=== PATIENT | female | born 1955 | race Caucasian/White ===

== ENCOUNTER → 2019-09-18 13:42 | Outpatient (CLI) | payer OTHER, SELFPAY ==
[2019-09-18 15:18] LABS: Free T3, Triiodothyronine Free 2.68 pg/mL (2.77-5.27); Free T4, Direct Thyroxine 1.02 ng/dL (0.78-2.19)
[2019-09-18 15:32] LABS: Thyroid Stimulating Hormone 1.15 uIU/mL (0.47-4.68)
[2019-09-18 16:41] LABS: Cholesterol 190 mg/dL (140-199); HDL Cholesterol 88 mg/dL (40-60); LDL Cholesterol Calculated 92 mg/dL (<100); Triglycerides 48 mg/dL (35-150)
[2019-09-18 16:42] LABS: Creatinine Urine Random 35.2 mg/dL
[2019-09-18 16:59] LABS: Microalbumin Urine Random < 0.6 mg/dL (0-1.6)
== END ==
PROVIDERS: Referring Provider Nurse Practitioner; Visit Provider Nurse Practitioner
DX: M85.88 Other specified disorders of bone density and structure, other site (principal); Z78.0 Asymptomatic menopausal state; E78.5 Hyperlipidemia, unspecified; Z91.018 Allergy to other foods; Z82.62 Family history of osteoporosis; Z87.891 Personal history of nicotine dependence
CPT/HCPCS: 36415; 77080; 80061; 82043; 82570; 84439; 84443; 84481

== ENCOUNTER → 2019-09-30 10:23 | Outpatient (CLI) | payer OTHER, SELFPAY ==
--- NOTE | 2019-09-30 10:29 | DI.MG.S_ITS ---
BILATERAL DIGITAL SCREENING MAMMOGRAM 3D/2D WITH CAD: 09/30/2019 CLINICAL: Baseline exam. Routine screening. Family history of breast cancer. No prior exams were available for comparison. The tissue of both breasts is heterogeneously dense. This may lower the sensitivity of mammography. Current study was also evaluated with a Computer Aided Detection (CAD) system. No significant masses, calcifications, or other findings are seen in either breast. IMPRESSION: NEGATIVE There is no mammographic evidence of malignancy. A 1 year screening mammogram is recommended. This exam was interpreted at Station ID: [id number]. NOTE: For mammograms, a report in lay terms will be sent to the patient. Approximately 15% of breast malignancies will not be visualized mammographically. In the management of a palpable breast mass, a negative mammogram must not discourage biopsy of a clinically suspicious lesion. Electronically Signed By: Beau chaidez/[email or web address]:10/02/2019 07:52:55 letter sent: Normal Exam ACR BI-RADS Category 1: Negative [id number]
== END ==
PROVIDERS: PCP Nurse Practitioner; Referring Provider Internal Medicine; Visit Provider Internal Medicine
DX: Z12.31 Encounter for screening mammogram for malignant neoplasm of breast (principal); Z80.3 Family history of malignant neoplasm of breast
CPT/HCPCS: 77063; 77067

== ENCOUNTER → 2020-01-01 14:03 | Outpatient (CLI) | payer OTHER, SELFPAY ==
--- NOTE | 2020-01-22 07:59 | PM.CARDMON.1 ---
Community Development Specialist Report Referral & Results Date Patient Seen: 01/01/20 Requesting provider: Teri Ashley Indication: Bradycardia Duration of monitoring (days): 7 Diary information: There were 8 patient triggered events and 8 patient diary entries Patient triggered events were associated with (within 45 seconds) sinus rhythm, PVCs, PACs, nonsustained ventricular tachycardia, and supraventricular tachycardia Patient diary entries were associated with (within 45 seconds) sinus rhythm, PVCs, PACs, and SVT. Data: Minimum heart rate identified was 57 beats per minute at 14:03 on 01/02/2020 Maximum sinus heart rate was 150 beats per minute at 14:30 on 01/07/2020 Maximum overall heart rate was 210 beats per minute at 17:40 on 01/03/2020 during a 4 beat run of nonsustained monomorphic ventricular tachycardia Less than 1% of identified beats or either ventricular supraventricular ectopic in origin There were 15 runs of nonsustained ventricular tachycardia the fastest being listed above and the longest lasting 10.1 seconds at a rate of 139 beats per minute. Upon closer inspection several of the episodes identified by the computer as ventricular tachycardia appear to be aberrantly conducted sinus beats. However others are much more likely true nonsustained monomorphic ventricular tachycardia. There were also 12 runs of SVT/atrial tachycardia the longest lasting 19 beats at a rate of 137 beats per minute, the fastest being 13 beats at a rate of 187 beats per minute Impression: beam doffer showing rare PVCs and PACs. There were some runs of ventricular tachycardia SVT and aberrantly conducted sinus that appeared and was interpreted as ventricular tachycardia by the computer Clinical correlation suggested
== END ==
PROVIDERS: PCP Nurse Practitioner; Referring Provider Nurse Practitioner; Visit Provider Nurse Practitioner
DX: R00.1 Bradycardia, unspecified (principal); R53.83 Other fatigue
CPT/HCPCS: 0296T; 0298T

== ENCOUNTER 2020-03-30 17:35 | Emergency (ER) | payer OTHER, SELFPAY ==
[2020-03-30 17:38] VITALS: BP 128/65; PULSE 74; RESP 15; TEMP 37; O2SAT 97; BMI 22.4
[2020-03-30 17:44] VITALS: PULSE 79; RESP 31; O2SAT 93
[2020-03-30 17:45] VITALS: BP 139/64; PULSE 75; RESP 25; O2SAT 100
[2020-03-30 18:00] VITALS: BP 116/58; PULSE 69; RESP 12; O2SAT 97
--- NOTE | 2020-03-30 18:00 | ED.ARRPALP ---
HPI - Arrhythmia/Palpitations General Chief Complaint: Arrhythmia/Palpitations Stated Complaint: states bradychardia Time Seen by Provider: 03/30/20 17:59 Source: patient Mode of arrival: Ambulatory Limitations: no limitations History of Present Illness HPI narrative: 64-year-old female former smoker with a history of WPW presents with a chief complaint of an episode of bradycardia which lasted about 3-4 minutes earlier today. She states that her heart rate was down in the 40s as measured by a pulse oximeter but she denies any symptoms such as dizziness, weakness or lightheadedness. She has no chest pain or shortness of breath. She states that she has had a few occurrences previously but no findings on EKGs, she's even had a Zio patch. She denies any symptoms. She denies any new medications, dietary change or supplements. She states she is only here because she was hoping we could catch it on an EKG. Onset (ago): hour(s) Duration: now resolved Severity: mild Context: occurred during rest Arrhythmia history: other Associated symptoms: denies other symptoms Related Data Home Medications Medication Instructions Recorded Confirmed No Known Home Medications 10/31/19 02/07/20 Allergies Allergy/AdvReac Type Severity Reaction Status Date / Time bee venom protein (honey bee) Allergy Severe anaphalaxic Verified 03/30/20 17:44 Penicillins Allergy Severe swelling Verified 03/30/20 17:44 Sulfa (Sulfonamide Allergy Mild rash Verified 03/30/20 17:44 Antibiotics) Review of Systems Constitutional Constitutional: Denies chills, Denies fatigue, Denies fever(s), Denies frequent falls, Denies lethargy and Denies weakness Eyes Eyes: Denies change in vision, Denies eye discharge, Denies irritation and Denies loss of vision ENT Ears, Nose, Mouth, and Throat: Denies change in voice, Denies dizziness, Denies neck pain, Denies sore throat and Denies throat swelling Cardiovascular Cardiovascular: Denies chest pain, Denies irregular heart rhythm, Denies lightheadedness, Denies palpitations, Denies dyspnea, Denies dyspnea on exertion and Denies orthopnea Respiratory Respiratory: Denies cough, Denies dyspnea, Denies dyspnea on exertion and Denies wheezing Gastrointestinal Gastrointestinal: Denies abdominal pain, Denies change in bowel habits, Denies diarrhea, Denies nausea and Denies vomiting Musculoskeletal Musculoskeletal: Denies neck pain and Denies numbness Integumentary/Breasts Skin/Breast: Denies pruritus, Denies erythema, Denies rash and Denies wounds Neurologic Neurologic: Denies behavioral changes, Denies confusion, Denies dizziness, Denies frequent falls, Denies loss of vision, Denies numbness and Denies weakness Psychiatric Psychiatric: Denies anxiety, Denies behavioral changes, Denies confusion, Denies depression, Denies homicidal ideation and Denies suicidal ideation Endocrine Endocrine: Denies fatigue, Denies flushing and Denies palpitations Hematologic/Lymphatic Hematologic/Lymphatic: Denies easy bruising Allergic/Immunologic Allergic/Immunologic: Denies urticaria, Denies throat swelling and Denies wheezing Patient History Medical History Allergy to alpha-gal 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 Grandfather Dementia Grandmother Diabetes mellitus History of heart disease Social History Smoking Status: Former smoker Smoking Status: Former smoker alcohol intake frequency: holidays/special occasions only Substance Use Type: does not use Exam Narrative Exam Narrative: GEN: AOx3 and in mild distress EYES: Pupils are equal, round, and reactive to light and accommodation. Extraoccular muscles are intact bilaterally. There is no subconjunctival hemorrhage or exudate. CHEST: Lungs are clear to auscultation bilaterally and free of wheezes, rales, or rhonchi. Heart rate is regular rhythm, there are no murmurs, clicks, rubs, or gallops. There is no chest wall tenderness. ABD: Abdomen is soft and nontender. There is no guarding or rebound. Bowel sounds are normal in all 4 quadrants. There is no mass or organomegaly. EXT: Full painless ROM of all extremities with no loss of sensation or strength. SKIN: Warm, pink, and dry. No erythema or rash Initial Vital Signs Initial Vital Signs: Vital Signs Temperature 98.6 F 03/30/20 17:38 Pulse Rate 74 03/30/20 17:38 Respiratory Rate 15 03/30/20 17:38 Blood Pressure 128/65 03/30/20 17:38 Pulse Oximetry 97 03/30/20 17:38 Course Orders Ordered: ED Orders 03/30/20 17:43 EKG-12 Lead Stat Vital Signs Vital signs: Vital Signs - 8 hr 03/30/20 17:38 Temperature 98.6 F Pulse Rate 74 Respiratory Rate 15 Blood Pressure 128/65 Pulse Oximetry 97 MDM - Arrhythmia/Palpitations MDM Narrative Medical decision making narrative: Patient is asymptomatic and monitored for well over an hour. She remains in a normal sinus rhythm and a asymptomatic. We discuss the utility of more advanced workup but elected to hold off in the absence of symptoms. She is given return precautions and encouraged to follow up with her doctors. She has had questions answered to her apparent satisfaction Discharge Plan Departure Patient Disposition: Home Clinical Impression: Bradycardia Instructions: DI for Bradycardia Activity Restrictions/Additional Instructions: *You have been diagnosed with episodes of bradycardia *What to do: * continue to take medications as directed *Follow up with your primary care provider in 2-3 days, call for an appointment. Let them know you were seen in the Emergency Department and that we ask that you be seen in follow up *Return to ER if you should have any new, worsening or concerning symptoms Prescriptions: No Action No Known Home Medications RF: 0 Referrals: Teri Ashley ARNP [Primary Care Provider] -
[2020-03-30 18:30] VITALS: BP 116/60; PULSE 65; RESP 14; O2SAT 99
[2020-03-30 19:00] VITALS: BP 125/60; PULSE 65; RESP 12; O2SAT 100
== END 2020-03-30 19:29 | disposition home or self-care (01) ==
PROVIDERS: Emergency Provider Emergency Medicine; PCP Nurse Practitioner
DX: R00.1 Bradycardia, unspecified (principal)
CPT/HCPCS: 93005; 93010; 99283

== ENCOUNTER → 2024-09-12 08:52 | Outpatient (CLI) | payer OTHER, SELFPAY ==
[2024-09-12 09:43] LABS: Alanine Aminotransferase 29 IU/L (<35); Albumin 4.4 g/dL (3.5-5.0); Albumin Globulin Ratio 1.8 (1.0-2.8); Alkaline Phosphatase 73 U/L (38-126); Blood Urea Nitrogen 21 mg/dL (7-17); Calcium 9.4 mg/dL (8.4-10.2); Carbon Dioxide 26 mmol/L (22-32); Chloride 104 mmol/L (98-107); Cholesterol 255 mg/dL (140-199); Estimated Glomerular Filt Rate > 60 mL/min (>60); Globulin 2.5 g/dL (1.7-4.1); Glucose 81 mg/dL (70-99); HEMOLYSIS < 15 (0-50); Potassium 4.3 mmol/L (3.4-5.1); Sodium 136 mmol/L (137-145); Total Protein 6.9 g/dL (6.3-8.2); Triglycerides 42 mg/dL (35-150)
[2024-09-12 09:47] LABS: Hemoglobin A1C% w Est Avg Glu 5.7 % (4.0-6.0)
[2024-09-12 09:52] LABS: HDL Cholesterol 116 mg/dL (40-60)
[2024-09-13 04:11] LABS: CRP, High Sensitivity 0.24 mg/L (0.00-3.00)
== END ==
PROVIDERS: PCP Family Medicine; Referring Provider Family Medicine; Visit Provider Family Medicine
DX: I47.10 Supraventricular tachycardia, unspecified (principal); N95.1 Menopausal and female climacteric states; E78.5 Hyperlipidemia, unspecified; I47.20 Ventricular tachycardia, unspecified; M81.0 Age-related osteoporosis without current pathological fracture
CPT/HCPCS: 36415; 80053; 80061; 82523; 83036; 83525; 83735; 86140

== ENCOUNTER → 2024-12-19 14:03 | Outpatient (CLI) | payer OTHER, SELFPAY ==
--- NOTE | 2024-12-19 14:03 | DI.RAD.S_ITS ---
PROCEDURE: XR DEXA AXIAL SKELETON INDICATIONS: interval update COMPARISON: None. FINDINGS: Lumbar Spine: Bone mineral density 0.852 g/cm2, T score -1.8. Left Femoral Neck: Bone mineral density 0.674 g/cm2, T score -1.6. Left Hip: Bone mineral density 0.858 g/cm2, T score -0.7. Fracture Risk Calculation (when applicable): 10-year fracture risk of a major osteoporotic fracture 15 percent and of a hip fracture 4.3 percent. (T score greater or equal to -1.0 to: NORMAL) (T score from -1.1 to -2.4: OSTEOPENIA) (T score less than or equal to -2.5: OSTEOPOROSIS) IMPRESSION: Osteopenia--- recommend repeat DEXA in 2-3 years for reassessment. Follow-up guidelines as follows: Osteoporosis: Consider a repeat DEXA and Vertebral Fracture Assessment (VFA) exam in 2 years or sooner if medically necessary, to reassess this patient's status. Osteopenia: Consider a repeat DEXA in 2-3 years to reassess this patient's status, or if there is a new clinical indication. Normal: Consider a repeat DEXA in 5 years or sooner, or if there is a new clinical indication. All treatment decisions require clinical judgment and consideration of individual patient factors, including patient preferences, comorbidities, previous drug use, risk factors not captured in the FRAX model (e.g., frailty, falls, vitamin D deficiency, increased bone turnover, interval significant decline in bone density ) and possible under- or over-estimation of fracture risk by FRAX. In addition, the NOF Guide recommends that FDA-approved medical therapies be considered in postmenopausal women and men age >= 50 years with a: * Hip or vertebral (clinical or morphometric) fracture * T-score of <=-2.5 at the spine or hip * Ten-year fracture probability by FRAX of >= 3% for hip fracture or >=20% for major osteoporotic fracture. Dictated by: Cristiano Dean M.D. on 12/20/2024 at 17:02 Approved by: Cristiano Dean M.D. on 12/20/2024 at 17:04
== END ==
LOC: RAD 14:03
PROVIDERS: PCP Family Medicine; Referring Provider Family Medicine; Visit Provider Family Medicine
DX: M81.0 Age-related osteoporosis without current pathological fracture (principal)
CPT/HCPCS: 77080